=== PATIENT | female | born 1965 | race Caucasian/White ===

== ENCOUNTER → 2023-11-13 07:40 | Outpatient (REF) | payer BC, SELFPAY | LOC: EMG 07:40 | PROVIDERS: ATTENDING PHYSICIAN Psychiatry & Neurology Neurology; FAMILY PHYSICIAN Family Medicine | DX: R20.0 Anesthesia of skin (principal) | CPT/HCPCS: 95886; 95911 ==

== ENCOUNTER → 2023-11-14 07:44 | Outpatient (REF) | payer BC, SELFPAY | LOC: EMG 07:44 | PROVIDERS: ATTENDING PHYSICIAN Psychiatry & Neurology Neurology; FAMILY PHYSICIAN Family Medicine | DX: R20.0 Anesthesia of skin (principal) | CPT/HCPCS: 95886; 95910 ==